=== PATIENT | female | born 1970 | race Two or more races ===

== ENCOUNTER 2022-04-14 04:15 | Emergency (ER) | payer OTHER ==
[2022-04-14 04:30] VITALS: BMI 26.6
[2022-04-14] MEDS ORDERED: LORazepam 2 MG/ML SDV VIAL IVPUSH ONE (04:50)
[2022-04-14] MEDS ORDERED: LACTATED RINGERS SOLUTION 1000 ML INFUS.BAG IV ONE ×2 (04:51→08:24)
[2022-04-14] MEDS ORDERED: ASPIRIN 325 MG TABLET PO ONE (05:34)
[2022-04-14] MEDS ORDERED: ASPIRIN 325 MG TABLET ONE (05:38)
[2022-04-14 05:39] LABS: EOS % 0.1 % (0-4.5); HEMATOCRIT 41.7 % (32.4-45.2); HEMOGLOBIN 13.5 GM/dL (10.7-15.3); LYMPH % 28.2 % (8-40); MCH 25.4 pg (25.7-33.7); MCHC 32.3 g/dl (32.0-36.0); MEAN CELL VOLUME 78.7 fl (80-96); MEAN PLT VOLUME 8.8 fl (7.5-11.1); MONO % 6.3 % (3.8-10.2); NEUT % 64.4 % (42.8-82.8); PLATELET COUNT 296 10^3/uL (134-434); RDW 14.4 % (11.6-15.6); WHITE BLOOD COUNT 6.6 K/mm3 (4.0-10.0)
[2022-04-14 06:00] LABS: CALCIUM 9.4 mg/dL (8.5-10.1)
[2022-04-14 06:01] LABS: ALBUMIN 4.1 g/dl (3.4-5.0); BLOOD UREA NITROGEN 19.2 mg/dL (7-18)
[2022-04-14 06:04] LABS: CREATININE 1.1 mg/dL (0.55-1.3)
[2022-04-14 06:06] LABS: BILIRUBIN,TOTAL 0.2 mg/dL (0.2-1); TOT PROT 8.1 g/dl (6.4-8.2)
[2022-04-14] MEDS ORDERED: MAG HYDROX/AL HYDROX/SIMETH -MYLANTA- ORAL SUSPENSION PO ONE (07:22)
[2022-04-14] MEDS ORDERED: MAG HYDROX/AL HYDROX/SIMETH 30 ML UNIT-DOSE CUP ONE (07:57)
[2022-04-14] MEDS ORDERED: amLODIPine BESYLATE 5 MG TABLET (FP) PO ONE (08:47)
[2022-04-14 09:00] VITALS: TEMP 97.5
[2022-04-14] MEDS ORDERED: amLODIPine BESYLATE 5 MG TABLET (FP) ONE (09:10)
[2022-04-14 09:31] VITALS: BP 144/93; PULSE 107; RESP 20
== END 2022-04-14 09:48 | disposition home or self-care (01) ==
LOC: JER 04:15
PROC: 3E033NZ Introduction of Analgesics, Hypnotics, Sedatives into Peripheral Vein, Percutaneous Approach (ICD-10-PCS; principal; 2022-04-14)
DX: F14.10 Cocaine abuse, uncomplicated (principal); R07.9 Chest pain, unspecified
CPT/HCPCS: 36415; 71045-TC-FY; 80053; 84484; 85025; 93005; 93010; 99285-25

== ENCOUNTER 2023-08-05 13:06 | Emergency (ER) | payer OTHER ==
[2023-08-05 13:24] VITALS: TEMP 98.7; BMI 29.5
[2023-08-05] MEDS ORDERED: LEVALBUTEROL HCL 0.63 MG/3 ML VIAL.NEB. IH ONE (15:14)
[2023-08-05 18:24] VITALS: BP 125/92; PULSE 107; RESP 20
== END 2023-08-05 18:32 | disposition home or self-care (01) ==
LOC: JER 13:06
DX: R06.02 Shortness of breath (principal); R05.9 Cough, unspecified; R00.0 Tachycardia, unspecified; U07.1 COVID-19
CPT/HCPCS: 71046-TC-FY; 99283-25